=== PATIENT | male | born 1985 | race Caucasian/White ===

== ENCOUNTER 2018-11-13 14:47 | Emergency (ER) | payer BC ==
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
== END 2018-11-13 15:12 | disposition home or self-care (01) ==
LOC: LB.ED 14:47
DX: T33.09XA Superficial frostbite of other part of head, initial encounter (principal)
CPT/HCPCS: 99283